=== PATIENT | male | born 1965 | race Caucasian/White ===

== ENCOUNTER 2019-03-01 18:32 | Inpatient (IN) | payer OTHER ==
[2019-03-01 20:54] VITALS: BMI 25.8
--- NOTE | 2019-03-01 23:15 | HP ---
CIWA Score Nausea/Vomitin Muscle Tremors: 5 Anxiety: 4-Mod. Anxious/Guarded Agitation: 4-Moderately Restless Paroxysmal Sweats: 3 Orientation: 0-Oriented Tacttile Disturbances: 2-Mild Itch/Numbness/Burn Auditory Disturbances: 1-Very Mild Visual Disturbances: 1-Very Mild Sensitivity Headache: 2-Mild CIWA-Ar Total Score: 25 - Admission Criteria OASAS Guidelines: Admission for Medically Managed Detox: Requires at least one of the followin. CIWA greater than 12 2. Seizures within the past 24 hours 3. Delirium tremens within the past 24 hours 4. Hallucinations within the past 24 hours 5. Acute intervention needed for co occurring medical disorder 6. Acute intervention needed for co occurring psychiatric disorder 7. Severe withdrawal that cannot be handled at a lower level of care (continued vomiting, continued diarrhea, abnormal vital signs) requiring intravenous medication and/or fluids 8. Patient presents the following: CIWA greater than 12 Admission Criteria Met: Admission criteria met Admission ROS [facility] Chief Complaint: C/O OF WITHDRAWAL SX'S/ SEEKING DETOX Allergies/Adverse Reactions: Allergies Allergy/AdvReac Type Severity Reaction Status Date / Time Penicillins Allergy Severe Rash Verified 03/01/19 20:45 History of Present Illness: 53 Y.O. MALE WITH HX/O ALCOHOLISM HERE FOR DETOX. THIS IS CLIENT FIRST ADMISSION HERE. REFERRED BY EMERGENCY SERVICES. NOT SURE WHO/WHERE. PRESENTS WITH C/O WITHDRAWAL SX'S. CIWA 25. REPORTS LAST DETOX 3 WEEKS AGO AT [facility]. STATES RELAPSED IMMED AFTER DC. denies any significant period of clean time. DENIES HX/O SI/HI/AVH. DOMICILED, UNEMPLOYED-HRA, DENIES LEGALS Exam Limitations: No Limitations - Ebola screening Have you traveled outside of the country in the last 21 days: No (N) Have you had contact with anyone from an Ebola affected area: No Do you have a fever: No - Review of Systems Constitutional: Chills, Loss of Appetite, Malaise, Night Sweats, Changes in sleep, Unintentional Wgt. Loss EENT: reports: Dental Problems ([place]) Respiratory: reports: No Symptoms reported Cardiac: reports: No Symptoms Reported GI: reports: Nausea, Poor Appetite, Poor Fluid Intake, Vomiting, Abdominal cramping : reports: Frequency Musculoskeletal: reports: Back Pain (CHRONIC), Joint Pain (CHRONIC) Integumentary: reports: Flushing Neuro: reports: Headache, Tremors Endocrine: reports: No Symptoms Reported Hematology: reports: Anemia (HX/O) Psychiatric: reports: Orientated x3, Agitated (IRRITABLE), Anxious, Depressed ( DENIES SI/HI) Other Systems: Reviewed and Negative Patient History - Patient Medical History Hx Anemia: Yes Hx Asthma: Yes Hx Chronic Obstructive Pulmonary Disease (COPD): No Hx Cancer: No Hx Cardiac Disorders: Yes (CARDIOMEGALY) Hx Congestive Heart Failure: No Hx Hypertension: No Hx Hypercholesterolemia: No Hx Pacemaker: No HX Cerebrovascular Accident: No Hx Seizures: No Hx Dementia: No Hx Diabetes: No Hx Gastrointestinal Disorders: No Hx Liver Disease: No Hx Genitourinary Disorders: No Hx Sexually Transmitted Disorders: Yes (HX/O SYPHILLIS) Hx Renal Disease (ESRD): No Hx Thyroid Disease: No Hx Human Immunodeficiency Virus (HIV): No Hx Hepatitis C: No Hx Depression: Yes Hx Suicide Attempt: No Hx Bipolar Disorder: Yes Hx Schizophrenia: No Other Medical History: DENIES - Patient Surgical History Past Surgical History: No - PPD History Previous Implant?: Yes Documented Results: Negative w/o proof Implanted On Prior [facility] Admission?: No PPD to be Administered?: Yes - Smoking Cessation Smoking history: Current some day smoker Have you smoked in the past 12 months: Yes Aproximately how many cigarettes per day: 1 Cigars Per Day: 0 Hx Chewing Tobacco Use: No Initiated information on smoking cessation: Yes 'Breaking Loose' booklet given: 03/01/19 - Substance & Tx. History Hx Alcohol Use: Yes Hx Substance Use: Yes Substance Use Type: Alcohol Hx Substance Use Treatment: Yes ([facility]) - Substances abused Alcohol Substance route: Oral Frequency: Daily Amount used: liquor- 2 pnts Age of first use: 16 Date of last use: 03/01/19 Family Disease History - Family Disease History Family Disease History: Heart Disease: Grandparent (ALCOHOLISM/ ), Mother ( ALCOHOLISM/ ), Other: Grandparent, Father (DRUG ABUSE), Mother Admission Physical Exam [facility] - Vital Signs Vital Signs: Vital Signs - 24 hr 03/01/19 03/01/19 20:44 23:05 Temperature 97.3 F L 97.3 F L Pulse Rate 83 83 Respiratory 20 20 Rate Blood Pressure 117/83 117/83 - Physical General Appearance: Yes: Disheveled, Moderate Distress, Alcohol on Breath, Tremorous, Irritable, Anxious, Other (MALODUROUS) HEENTM: Yes: EOMI, Normocephalic, Normal Voice, JAME, Pharynx Normal Respiratory: Yes: Chest Non-Tender, Lungs Clear, Normal Breath Sounds, No Respiratory Distress, No Accessory Muscle Use Neck: Yes: No masses,lesions,Nodules, Supple, Trachea in good position Breast: Yes: Breast Exam Deferred Cardiology: Yes: Regular Rhythm, S1, S2, Tachycardia Abdominal: Yes: Non Tender, Soft, Increased Bowel Sounds Genitourinary: Yes: Frequency (C/O) Back: Yes: Normal Inspection Musculoskeletal: Yes: full range of Motion, Gait Steady Extremities: Yes: Normal Capillary Refill, Normal Range of Motion, Non-Tender, Tremors Neurological: Yes: Fully Oriented, Alert, Motor Strength 5/5, Depressed Affect Integumentary: Yes: Warm, Other (FLUSHED) Lymphatic: Yes: Within Normal Limits - Diagnostic (1) Alcohol dependence with uncomplicated withdrawal Current Visit: Yes Status: Acute (2) Nicotine abuse Current Visit: Yes Status: Acute (3) Asthma Current Visit: Yes Status: Acute (4) Substance induced mood disorder Current Visit: Yes Status: Acute Cleared for Admission S - Detox or Rehab [facility] Level of Care: Medically Managed Detox Regimen/Protocol: Librium Claeared for Rehab Admission: No Breathalyzer - Breathalyzer Breathalyzer: 0 Urine Drug Screen - Test Device Lot number: [id number] Expiration date: 09/28/20 - Control Is test valid?: Yes - Results Drug screen NEGATIVE: No Urine drug screen results: BZO-Benzodiazepines Inpatient Rehab Admission - Rehab Decision to Admit Inpatient rehab admission?: No
[2019-03-01] MEDS ORDERED: MAGNESIUM HYDROX 2400MG/30ML ORAL SUSPENSION 30 ML CUP PO PRN (23:20)
[2019-03-01] MEDS ORDERED: MAGNESIUM CITRATE 300 ML BOTTLE PO PRN (23:20)
[2019-03-01] MEDS ORDERED: MAG HYDROX/AL HYDROX/SIMETH 30 ML UNIT-DOSE CUP PO PRN (23:20)
[2019-03-01] MEDS ORDERED: guaiFENesin 200 MG/10 ML 10 ML UNIT-DOSE CUPS PO PRN (23:20)
[2019-03-01] MEDS ORDERED: METHOCARBAMOL 500 MG TABLET PO PRN (23:20)
[2019-03-01] MEDS ORDERED: NICOTINE POLACRILEX 2 MG GUM BUC PRN (23:20)
[2019-03-01] MEDS ORDERED: hydrOXYzine PAMOATE 25 MG CAPSULE (FP) PO PRN (23:20)
[2019-03-01] MEDS ORDERED: MENTHOL/PHENOL 1 EACH UD MM PRN (23:20)
[2019-03-01] MEDS ORDERED: chlordiazePOXIDE HCL 25 MG CAPSULE PO ONE (23:20)
[2019-03-01] MEDS ORDERED: ACETAMINOPHEN 325 MG TABLET (FP) PO PRN ×2 (23:20)
[2019-03-01] MEDS ORDERED: BISMUTH SUBSALICYLATE 524 MG/30 ML UD PO PRN (23:20)
[2019-03-01] MEDS ORDERED: chlordiazePOXIDE HCL 25 MG CAPSULE PO PRN (23:20)
[2019-03-01] MEDS ORDERED: IBUPROFEN 400 MG TABLET (FP) PO PRN ×2 (23:20)
[2019-03-01] MEDS ORDERED: ONDANSETRON *ODT* 4 MG TABLET SL PRN (23:20)
[2019-03-01] MEDS ORDERED: DICYCLOMINE HCL 10 MG CAPSULE PO PRN (23:20)
[2019-03-01] MEDS ORDERED: P-EPHED 60MG/TRIPROLIDI 2.5MG TABLET PO PRN (23:20)
[2019-03-02] MEDS: MELATONIN 5 MG TABLETS PO PRN ×2 (01:02→22:07)
[2019-03-02] MEDS: chlordiazePOXIDE HCL 25 MG CAPSULE PO SCH ×5 (01:04→22:05)
[2019-03-02] MEDS: ASPIRIN 81 MG CHEWABLE TABLETS PO SCH (10:19)
[2019-03-02] MEDS: PRENATAL VITAMINS W/ FOLIC ACID TABLET (FP) PO SCH (10:19)
[2019-03-02 10:32] LABS: HEMOGLOBIN 10.9 GM/dL (11.7-16.9); MCH 32.5 pg (25.7-33.7); MEAN CELL VOLUME 98.3 fl (80-96); MEAN PLT VOLUME 8.3 fl (7.5-11.1); PLATELET COUNT 108 K/MM3 (134-434); RBC 3.35 M/mm3 (4.00-5.60); RDW 13.6 % (11.9-15.9); WHITE BLOOD COUNT 5.5 K/mm3 (4.0-10.0)
[2019-03-02 10:40] LABS: EPI CELLS 0.3 /HPF (0-5/HPF); PH,URINE 5.5 (5.0-8.0); URINE APPEARANCE CLEAR; URINE BACTERIA 2.4 /hpf (NEGATIVE); URINE BILIRUBIN NEGATIVE (NEGATIVE); URINE CASTS 0 /lpf (0-8); URINE COLOR YELLOW; URINE GLUCOSE (UA) NEGATIVE (NEGATIVE); URINE KETONE NEGATIVE (NEGATIVE); URINE LEUK ESTERASE TRACE (NEGATIVE); URINE NITRITE NEGATIVE (NEGATIVE); URINE PROTEIN NEGATIVE (NEGATIVE); URINE RBC 1 /hpf (0-4); URINE WBC 0 /hpf (0-5)
--- NOTE | 2019-03-02 11:07 | PN ---
[facility] CIWA - CIWA Score Nausea/Vomitin-No Nausea/No Vomiting Muscle Tremors: 3 Anxiety: 2 Agitation: 2 Paroxysmal Sweats: 4-Forehead w/Sweat Beads Orientation: 0-Oriented Tacttile Disturbances: 1-Very Mild Itch/Numbness Auditory Disturbances: 0-None Visual Disturbances: 2-Mild Sensitivity Headache: 2-Mild CIWA-Ar Total Score: 16 [facility] Progress Note (SOAP) Subjective: C/O shakes, sweats, interrupted sleep, and headache. Objective: 03/02/19 11:04 Vital Signs 03/02/19 03/02/19 03/02/19 03:21 03:30 04:00 Temperature Pulse Rate 87 86 Respiratory 18 16 16 Rate Blood Pressure 03/02/19 03/02/19 03/02/19 04:30 05:00 05:30 Temperature Pulse Rate 86 86 85 Respiratory 16 16 16 Rate Blood Pressure 03/02/19 03/02/19 03/02/19 05:58 06:00 06:30 Temperature 98.2 F Pulse Rate 85 85 80 Respiratory 16 16 16 Rate Blood Pressure 123/77 03/02/19 03/02/19 03/02/19 07:00 07:30 08:00 Temperature Pulse Rate 79 79 78 Respiratory 16 16 16 Rate Blood Pressure 03/02/19 09:31 Temperature 97.3 F L Pulse Rate 88 Respiratory 18 Rate Blood Pressure 121/72 Assessment: 03/02/19 11:04 AOX3, in no respiratory distress EENT: WNL full ROM withdrawal symptoms persists. Plan: continue detox Increase fluids monitor withdrawal signs
[2019-03-02 12:06] LABS: ALBUMIN 3.1 g/dl (3.4-5.0); ALK PHOS 145 U/L (45-117); ANION GAP 10 MMOL/L (8-16); BILIRUBIN,TOTAL 0.8 mg/dL (0.2-1); BLOOD UREA NITROGEN 7 mg/dL (7-18); CALCIUM 8.3 mg/dL (8.5-10.1); CHLORIDE 105 mmol/L (98-107); CO2 28 mmol/L (21-32); CREATININE 0.6 mg/dL (0.55-1.3); GLUCOSE,RANDOM 96 mg/dL (74-106); POTASSIUM 3.4 mmol/L (3.5-5.1); SGOT/AST 47 U/L (15-37); SGPT/ALT 18 U/L (13-61); SODIUM 142 mmol/L (136-145); TOT PROT 6.9 g/dl (6.4-8.2)
--- NOTE | 2019-03-02 16:08 | PN ---
[facility] Progress Note Note: Ferrous sulfate 325mg po tid started today. Pt's K+ is 3.4. potassium 20meq po daily x3 days. Will recheck potassium level on 03/04/2019.
--- NOTE | 2019-03-02 16:11 | CONSULT ---
[facility] Psychiatric Consult - Data Date of interview: 03/02/19 Admission source: [facility] Identifying data: Readmission to [facility] for this 54 y/o male self- referred for detoxification (alcohol). Examined at [address] [place] [address]. Patient is single, a father of four, domiciled, unemployed and supported on welfare. Substance Abuse History: Confirmed by the patient in this session. Details in current [facility] report : Smoking history: Current some day smoker. Have you smoked in the past 12 months: Yes. Aproximately how many cigarettes per day: 1. Cigars Per Day: 0. Hx Chewing Tobacco Use: No. Initiated information on smoking cessation: Yes. 'Breaking Loose' booklet given: 03/01/19. - Substance & Tx. History. Hx Alcohol Use: Yes. Hx Substance Use: Yes. Substance Use Type : Alcohol. Hx Substance Use Treatment: Yes ([facility]). - Substances abused. Alcohol. Substance route: Oral. Frequency: Daily. Amount used: liquor- 2 pnts. Age of first use: 16. Date of last use: 03/01/19 Medical History: Bronchial asthma, hypertension, anemeia, cardiomegaly and history of treatment for syphilis. Psychiatric History: Patient is a vague historian. Admits to " some " psychiatric hospitalizations but he only remembers a distant admission to [facility]. Reportedly diagnosed with MDD. Has been medicated in the past with depakote + vistaril + seroquel. Mr Moya states that his psychiatric aftercare use to be at [facility]PD clinic (no show for more than eight months). " I have not been there for, I don't know, seven, eight , nine months. May be even, more than a year. I don't know. It is so far that I don't recall ". Patient declares that he has NOT taken his medications for about a year. Denies history of suicide attempts. Physical/Sexual Abuse/Trauma History: Patient denies. Additional Comment: Urine drug screen results: BZO-Benzodiazepines. Noted. Mental Status Exam - Mental Status Exam Alert and Oriented to: Time, Place, Person Cognitive Function: Good Patient Appearance: Disheveled Mood: Hopeful, Euthymic Affect: Appropriate, Normal Range Patient Behavior: Cooperative (indifferent) Speech Pattern: Clear, Appropriate Voice Loudness: Normal Thought Process: Goal Oriented Thought Disorder: Not Present Hallucinations: Denies Suicidal Ideation: Denies Homicidal Ideation: Denies Insight/Judgement: Poor Sleep: Poorly, Difficulty falling asleep Appetite: Good Muscle strength/Tone: Normal Gait/Station: Normal Psychiatric Findings - Problem List ([place] 1, 2,3) (1) Alcohol dependence with uncomplicated withdrawal Current Visit: Yes Status: Acute (2) Nicotine dependence Current Visit: Yes Status: Chronic (3) History of mood disorder Current Visit: Yes Status: Chronic (4) Non-compliance Current Visit: Yes Status: Chronic (5) Insomnia Current Visit: Yes Status: Chronic - Initial Treatment Plan Initial Treatment Plan: Psychoeducation. Sleep hygiene. Detoxification. AA meetings. Relapse prevention (MAT) : discussed in session (met with patient's indifference). Seroquel 50 mg po hs (patient's request). Side effects/benefits disccussed with the patient. Verbal consent given. Mr Moya states that he is not interested in detoxification and might leave the program in the morning because he has to take care of pressing housing issues. " I don't want to be in the streets ". Observation.
[2019-03-02] MEDS: FERROUS SO4 325 MG TABLET (FP) PO SCH (17:32)
[2019-03-02] MEDS: POTASSIUM CHLORIDE TABS 20 MEQ TABLET.ER (FP) PO SCH (17:32)
[2019-03-02] MEDS ORDERED: THIAMINE HCL 100 MG TABLET (FP) PO SCH (22:00)
[2019-03-02] MEDS ORDERED: QUEtiapine FUMARATE 50 MG TABLET PO SCH (22:00)
[2019-03-03] MEDS: chlordiazePOXIDE HCL 25 MG CAPSULE PO SCH ×2 (05:40→10:20)
[2019-03-03] MEDS: FERROUS SO4 325 MG TABLET (FP) PO SCH ×2 (09:00→13:00)
[2019-03-03] MEDS: ASPIRIN 81 MG CHEWABLE TABLETS PO SCH (10:19)
[2019-03-03] MEDS: PRENATAL VITAMINS W/ FOLIC ACID TABLET (FP) PO SCH (10:19)
[2019-03-03] MEDS: POTASSIUM CHLORIDE TABS 20 MEQ TABLET.ER (FP) PO SCH (10:20)
[2019-03-03 11:00] LABS: EPI CELLS 0.3 /HPF (0-5/HPF); PH,URINE 7.5 (5.0-8.0); URINE APPEARANCE CLEAR; URINE BACTERIA 22.3 /hpf (NEGATIVE); URINE BILIRUBIN NEGATIVE (NEGATIVE); URINE CASTS 0 /lpf (0-8); URINE COLOR YELLOW; URINE GLUCOSE (UA) NEGATIVE (NEGATIVE); URINE KETONE NEGATIVE (NEGATIVE); URINE LEUK ESTERASE 1+ (NEGATIVE); URINE NITRITE NEGATIVE (NEGATIVE); URINE PROTEIN NEGATIVE (NEGATIVE); URINE RBC 1 /hpf (0-4); URINE UROBILINOGEN 0.2 mg/dL (0.2-1.0); URINE WBC 0 /hpf (0-5)
--- NOTE | 2019-03-03 12:36 | PN ---
S CIWA - CIWA Score Nausea/Vomitin-Mild Nausea/No Vomiting Muscle Tremors: 3 Anxiety: 3 Agitation: 3 Paroxysmal Sweats: 3 Orientation: 0-Oriented Tacttile Disturbances: 0-None Auditory Disturbances: 0-None Visual Disturbances: 0-None Headache: 0-None Present CIWA-Ar Total Score: 13 S Progress Note (SOAP) Subjective: Sweating, interrupted sleep Objective: 03/03/19 12:33 Last Vital Signs Temp Pulse Resp BP Pulse Ox 97.5 F L 86 18 135/90 03/03/19 10:23 03/03/19 10:23 03/03/19 10:23 03/03/19 10:23 Laboratory Tests 03/02/19 03/02/19 03/02/19 07:45 07:45 07:45 WBC RBC Hgb Hct MCV MCH MCHC RDW Plt Count MPV Sodium 142 Potassium 3.4 L Chloride 105 Carbon Dioxide 28 Anion Gap 10 BUN 7 Creatinine 0.6 Creat Clearance w eGFR 140.93 Random Glucose 96 Calcium 8.3 L Total Bilirubin 0.8 AST 47 H ALT 18 Alkaline Phosphatase 145 H Total Protein 6.9 Albumin 3.1 L Urine Color Yellow Urine Appearance Clear Urine pH 5.5 Ur Specific [place] 1.019 Urine Protein Negative Urine Glucose (UA) Negative Urine Ketones Negative Urine Blood Negative Urine Nitrite Negative Urine Bilirubin Negative Urine Urobilinogen 1.0 Ur Leukocyte Esterase Trace Urine WBC (Auto) 0 Urine RBC (Auto) 1 Urine Casts (Auto) 0 U Epithel Cells (Auto) 0.3 Urine Bacteria (Auto) 2.4 RPR Titer Nonreactive 03/02/19 03/03/19 08:00 07:50 WBC 5.5 RBC 3.35 L Hgb 10.9 L Hct 33.0 L MCV 98.3 H MCH 32.5 MCHC 33.0 RDW 13.6 Plt Count 108 L MPV 8.3 Sodium Potassium Chloride Carbon Dioxide Anion Gap BUN Creatinine Creat Clearance w eGFR Random Glucose Calcium Total Bilirubin AST ALT Alkaline Phosphatase Total Protein Albumin Urine Color Yellow Urine Appearance Clear Urine pH 7.5 D Ur Specific [place] 1.005 L Urine Protein Negative Urine Glucose (UA) Negative Urine Ketones Negative Urine Blood Trace Urine Nitrite Negative Urine Bilirubin Negative Urine Urobilinogen 0.2 Ur Leukocyte Esterase 1+ H Urine WBC (Auto) 0 Urine RBC (Auto) 1 Urine Casts (Auto) 0 U Epithel Cells (Auto) 0.3 Urine Bacteria (Auto) 22.3 RPR Titer Labs reviewed: K 3.4, noted with pancytopenia Assessment: 03/03/19 12:34 Withdrawal symptoms Noted with mild hypokalemia and pancytopenia Plan: Continue detox Encouraged PO water hydration Hypokalemia: supplemented, follow up on repeated serum K level on 03/04 Pancytopenia: most likely r/t chronic alcoholism, encouraged abstinence, follow up with PCP for monitoring
[2019-03-03 13:58] VITALS: BP 111/74; PULSE 98; TEMP 98.2
--- NOTE | 2019-03-03 14:10 | DS ---
[facility] Detox Discharge Summary Admission Date: 03/01/19 Discharge Date: 03/03/19 - History Present History: Alcohol Dependence Additional Comments: Patient demanded to leave AMA despite encouragement from staff to complete detox. Patient denies any complaints. Instructed to follow up with PCP within 3 days and to call [phone] if any withdrawal symptoms or feeling sick. Pertinent Past History: Alcohol dependence Cardiomegaly Anemia Asthma Nicotine dependence Depression Bipolar disorder - Physical Exam Results Vital Signs: Vital Signs Temperature 98.2 F 03/03/19 13:57 Pulse Rate 98 H 03/03/19 13:57 Respiratory Rate 18 03/03/19 13:57 Blood Pressure 111/74 03/03/19 13:57 O2 Sat by Pulse Oximetry (%) Pertinent Admission Physical Exam Findings: Withdrawal symptoms Laboratory Tests 03/02/19 03/02/19 03/02/19 07:45 07:45 07:45 WBC RBC Hgb Hct MCV MCH MCHC RDW Plt Count MPV Sodium 142 Potassium 3.4 L Chloride 105 Carbon Dioxide 28 Anion Gap 10 BUN 7 Creatinine 0.6 Creat Clearance w eGFR 140.93 Random Glucose 96 Calcium 8.3 L Total Bilirubin 0.8 AST 47 H ALT 18 Alkaline Phosphatase 145 H Total Protein 6.9 Albumin 3.1 L Urine Color Yellow Urine Appearance Clear Urine pH 5.5 Ur Specific [place] 1.019 Urine Protein Negative Urine Glucose (UA) Negative Urine Ketones Negative Urine Blood Negative Urine Nitrite Negative Urine Bilirubin Negative Urine Urobilinogen 1.0 Ur Leukocyte Esterase Trace Urine WBC (Auto) 0 Urine RBC (Auto) 1 Urine Casts (Auto) 0 U Epithel Cells (Auto) 0.3 Urine Bacteria (Auto) 2.4 RPR Titer Nonreactive 03/02/19 03/03/19 08:00 07:50 WBC 5.5 RBC 3.35 L Hgb 10.9 L Hct 33.0 L MCV 98.3 H MCH 32.5 MCHC 33.0 RDW 13.6 Plt Count 108 L MPV 8.3 Sodium Potassium Chloride Carbon Dioxide Anion Gap BUN Creatinine Creat Clearance w eGFR Random Glucose Calcium Total Bilirubin AST ALT Alkaline Phosphatase Total Protein Albumin Urine Color Yellow Urine Appearance Clear Urine pH 7.5 D Ur Specific [place] 1.005 L Urine Protein Negative Urine Glucose (UA) Negative Urine Ketones Negative Urine Blood Trace Urine Nitrite Negative Urine Bilirubin Negative Urine Urobilinogen 0.2 Ur Leukocyte Esterase 1+ H Urine WBC (Auto) 0 Urine RBC (Auto) 1 Urine Casts (Auto) 0 U Epithel Cells (Auto) 0.3 Urine Bacteria (Auto) 22.3 RPR Titer Labs reviewed - Medication Discharge Medications: Ambulatory Orders Aspirin [ASA -] 81 mg PO DAILY 03/01/19 Divalproex [Depakote -] 500 mg PO BID 03/01/19 Quetiapine Fumarate [Seroquel -] 300 mg PO HS 03/01/19 hydrOXYzine PAMOATE [Vistaril -] 50 mg PO TID 03/01/19 - Diagnosis (1) Anemia Current Visit: Yes Status: Chronic (2) Cardiomegaly Current Visit: Yes Status: Chronic (3) Depression Current Visit: Yes Status: Chronic (4) Bipolar disorder Current Visit: Yes Status: Chronic (5) Alcohol dependence with uncomplicated withdrawal Current Visit: Yes Status: Acute (6) Asthma Current Visit: Yes Status: Chronic (7) Nicotine dependence Current Visit: Yes Status: Chronic (8) Hypokalemia Current Visit: Yes Status: Acute (9) Pancytopenia Current Visit: Yes Status: Acute - AMA Did Patient Leave Against Medical Advice: Yes (Instructed to call [phone] if sick or withdrawal symptoms)
[2019-03-03] MEDS ORDERED: chlordiazePOXIDE HCL 10 MG CAPSULE PO PRN (23:00)
[2019-03-03] MEDS ORDERED: chlordiazePOXIDE HCL 10 MG CAPSULE PO SCH (23:00)
[2019-03-04] MEDS ORDERED: chlordiazePOXIDE HCL 10 MG CAPSULE PO SCH (23:00)
== END 2019-03-03 15:15 | disposition left against medical advice (07) | DRG 770 ==
LOC: YASAS 18:32 → Y6N 23:45
PROVIDERS: ADMIT Surgery; ATTEND Surgery
PROC: HZ2ZZZZ Detoxification Services for Substance Abuse Treatment (ICD-10-PCS; principal; 2019-03-01)
DX: F10.230 Alcohol dependence with withdrawal, uncomplicated (principal); F17.213 Nicotine dependence, cigarettes, with withdrawal; F39 Unspecified mood [affective] disorder; F31.9 Bipolar disorder, unspecified; I51.7 Cardiomegaly; D64.9 Anemia, unspecified; D61.818 Other pancytopenia; E87.6 Hypokalemia; J45.909 Unspecified asthma, uncomplicated; G47.00 Insomnia, unspecified; Z91.19 Patient's noncompliance with other medical treatment and regimen
CPT/HCPCS: 36415; 80053; 81003; 85027; 86593

== ENCOUNTER 2023-04-19 10:32 | Inpatient (IN) | payer OTHER ==
[2023-04-19 10:52] VITALS: BMI 27.4
[2023-04-19] MEDS ORDERED: IBUPROFEN 600 MG TABLET (FP) PO PRN (11:20)
[2023-04-19] MEDS ORDERED: MAG HYDROX/AL HYDROX/SIMETH 30 ML UNIT-DOSE CUP PO PRN (11:20)
[2023-04-19] MEDS ORDERED: COLLOIDAL OATMEAL 1 BAR EACH TP PRN (11:20)
[2023-04-19] MEDS ORDERED: guaiFENesin 600 MG TABLET.ER (FP) PO PRN (11:20)
[2023-04-19] MEDS ORDERED: AMMONIUM LACTATE 12% LOTION 225 GM BOTTLE TP PRN (11:20)
[2023-04-19] MEDS ORDERED: MAGNESIUM HYDROX 2400MG/30ML ORAL SUSPENSION 30 ML CUP PO PRN (11:20)
[2023-04-19] MEDS ORDERED: POLYETHYLENE GLYCOL (HEALTHYLAX) 3350 17 GM PACKET PO PRN (11:20)
[2023-04-19] MEDS ORDERED: NICOTINE 10 MG CARTRIDGE (INHALER) IH PRN (11:20)
[2023-04-19] MEDS ORDERED: NALOXONE HCL 0.4 MG/ML VIAL IM PRN (11:20)
[2023-04-19] MEDS ORDERED: LOPERAMIDE HCL 2 MG CAPSULE PO PRN (11:20)
[2023-04-19] MEDS ORDERED: BENZONATATE 200 MG CAPSULE PO PRN (11:20)
[2023-04-19] MEDS ORDERED: IBUPROFEN 400 MG TABLET (FP) PO PRN (11:20)
[2023-04-19] MEDS ORDERED: BENZOCAINE/MENTHOL (CHLORASEPTIC ) LOZENGE MM PRN (11:20)
[2023-04-19] MEDS ORDERED: ACETAMINOPHEN 325 MG TABLET (FP) PO PRN (11:20)
[2023-04-19] MEDS ORDERED: NALOXONE HCL (KLOXXADO) 8 MG SPRAY NS PRN (11:20)
[2023-04-19] MEDS ORDERED: chlordiazePOXIDE HCL 25 MG CAPSULE ONE (11:42)
[2023-04-19] MEDS ORDERED: ASPIRIN 81 MG CHEWABLE TABLETS ONE (11:43)
[2023-04-19] MEDS: chlordiazePOXIDE HCL 25 MG CAPSULE PO SCH ×3 (11:45→22:06)
[2023-04-19] MEDS: ASPIRIN 81 MG CHEWABLE TABLETS PO SCH (11:48)
[2023-04-19 17:08] LABS: HEMATOCRIT 34.5 % (35.4-49); HEMOGLOBIN 11.5 GM/dL (11.7-16.9); MCH 29.7 pg (25.7-33.7); MCHC 33.3 g/dl (32.0-35.9); MEAN CELL VOLUME 89.2 fl (80-96); MEAN PLT VOLUME 8.7 fl (7.5-11.1); PLATELET COUNT 118 10^3/uL (134-434); RBC 3.87 M/mm3 (4.00-5.60); RDW 14.9 % (11.9-15.9); WHITE BLOOD COUNT 5.7 K/mm3 (4.0-10.0)
[2023-04-19 17:14] LABS: POTASSIUM 4.8 mmol/L (3.5-5.1)
[2023-04-19 17:15] LABS: CALCIUM 8.8 mg/dL (8.5-10.1)
[2023-04-19 17:16] LABS: ALBUMIN 3.6 g/dl (3.4-5.0); BLOOD UREA NITROGEN 12.6 mg/dL (7-18)
[2023-04-19 17:19] LABS: CREATININE 0.9 mg/dL (0.55-1.3)
[2023-04-19 17:20] LABS: BILIRUBIN,TOTAL 0.7 mg/dL (0.2-1)
[2023-04-19 17:21] LABS: TOT PROT 8.1 g/dl (6.4-8.2)
[2023-04-19] MEDS: ONDANSETRON *ODT* 4 MG TABLET SL PRN (18:27)
[2023-04-19] MEDS: THIAMINE HCL 100 MG TABLET (FP) PO SCH (22:05)
[2023-04-19] MEDS: MELATONIN 5 MG TABLETS PO SCH (22:06)
[2023-04-19] MEDS: QUEtiapine FUMARATE 100 MG TABLET (FP) PO SCH (22:06)
[2023-04-20] MEDS: chlordiazePOXIDE HCL 25 MG CAPSULE PO SCH ×4 (05:52→22:10)
[2023-04-20] MEDS: ASPIRIN 81 MG CHEWABLE TABLETS PO SCH (10:09)
[2023-04-20] MEDS: QUEtiapine FUMARATE 50 MG TABLET PO SCH (10:09)
[2023-04-20] MEDS: SERTRALINE HCL 25 MG TABLET (FP) PO SCH (10:09)
[2023-04-20] MEDS: PRENATAL VITAMINS W/ FOLIC ACID TABLET (FP) PO SCH (10:09)
[2023-04-20] MEDS: METHOCARBAMOL 500 MG TABLET PO PRN ×2 (10:13→18:00)
[2023-04-20] MEDS: ONDANSETRON *ODT* 4 MG TABLET SL PRN (10:13)
[2023-04-20] MEDS: MELATONIN 5 MG TABLETS PO SCH (22:10)
[2023-04-20] MEDS: QUEtiapine FUMARATE 100 MG TABLET (FP) PO SCH (22:10)
[2023-04-20] MEDS: THIAMINE HCL 100 MG TABLET (FP) PO SCH (22:10)
[2023-04-20] MEDS: BISMUTH SUBSALICYLATE 524 MG/30 ML PO PRN (22:13)
[2023-04-21] MEDS: chlordiazePOXIDE HCL 25 MG CAPSULE PO SCH ×4 (05:43→22:07)
[2023-04-21] MEDS: PRENATAL VITAMINS W/ FOLIC ACID TABLET (FP) PO SCH (10:04)
[2023-04-21] MEDS: SERTRALINE HCL 25 MG TABLET (FP) PO SCH (10:05)
[2023-04-21] MEDS: QUEtiapine FUMARATE 50 MG TABLET PO SCH (10:05)
[2023-04-21] MEDS: ASPIRIN 81 MG CHEWABLE TABLETS PO SCH (10:05)
[2023-04-21] MEDS: BISMUTH SUBSALICYLATE 524 MG/30 ML PO PRN ×2 (10:09→22:09)
[2023-04-21] MEDS: LIDOCAINE 5% TOPICAL PATCH TP SCH (13:18)
[2023-04-21] MEDS: THIAMINE HCL 100 MG TABLET (FP) PO SCH (22:06)
[2023-04-21] MEDS: QUEtiapine FUMARATE 100 MG TABLET (FP) PO SCH (22:06)
[2023-04-21] MEDS: DICYCLOMINE HCL 10 MG CAPSULE PO PRN (22:06)
[2023-04-21] MEDS: METHOCARBAMOL 500 MG TABLET PO PRN (22:06)
[2023-04-21] MEDS: MELATONIN 5 MG TABLETS PO SCH (22:06)
[2023-04-21] MEDS: LIDOCAINE PATCH REMOVAL MC SCH (23:09)
[2023-04-22] MEDS: chlordiazePOXIDE HCL 10 MG CAPSULE PO SCH ×4 (05:19→22:36)
[2023-04-22] MEDS: SERTRALINE HCL 25 MG TABLET (FP) PO SCH (10:13)
[2023-04-22] MEDS: ASPIRIN 81 MG CHEWABLE TABLETS PO SCH (10:13)
[2023-04-22] MEDS: PRENATAL VITAMINS W/ FOLIC ACID TABLET (FP) PO SCH (10:13)
[2023-04-22] MEDS: LIDOCAINE 5% TOPICAL PATCH TP SCH (10:13)
[2023-04-22] MEDS: QUEtiapine FUMARATE 50 MG TABLET PO SCH (10:13)
[2023-04-22] MEDS: BISMUTH SUBSALICYLATE 524 MG/30 ML PO PRN (10:16)
[2023-04-22] MEDS: DICYCLOMINE HCL 10 MG CAPSULE PO PRN (17:37)
[2023-04-22] MEDS: LIDOCAINE PATCH REMOVAL MC SCH (22:35)
[2023-04-22] MEDS: MELATONIN 5 MG TABLETS PO SCH (22:35)
[2023-04-22] MEDS: QUEtiapine FUMARATE 100 MG TABLET (FP) PO SCH (22:36)
[2023-04-22] MEDS: THIAMINE HCL 100 MG TABLET (FP) PO SCH (22:36)
[2023-04-22] MEDS: METHOCARBAMOL 500 MG TABLET PO PRN (22:36)
[2023-04-23] MEDS: chlordiazePOXIDE HCL 10 MG CAPSULE PO SCH ×2 (05:42→17:18)
[2023-04-23] MEDS: LIDOCAINE 5% TOPICAL PATCH TP SCH (09:32)
[2023-04-23] MEDS: PRENATAL VITAMINS W/ FOLIC ACID TABLET (FP) PO SCH (09:33)
[2023-04-23] MEDS: QUEtiapine FUMARATE 50 MG TABLET PO SCH (09:33)
[2023-04-23] MEDS: SERTRALINE HCL 25 MG TABLET (FP) PO SCH (09:33)
[2023-04-23] MEDS: ASPIRIN 81 MG CHEWABLE TABLETS PO SCH (09:33)
[2023-04-23] MEDS ORDERED: ALBUTEROL SO4 HFA INHALER IH PRN (15:16)
[2023-04-23] MEDS: QUEtiapine FUMARATE 100 MG TABLET (FP) PO SCH (22:04)
[2023-04-23] MEDS: THIAMINE HCL 100 MG TABLET (FP) PO SCH (22:05)
[2023-04-23] MEDS: MELATONIN 5 MG TABLETS PO SCH (22:05)
[2023-04-23] MEDS: LIDOCAINE PATCH REMOVAL MC SCH (22:50)
[2023-04-24] MEDS ORDERED: chlordiazePOXIDE HCL 10 MG CAPSULE PO ONE (05:00)
[2023-04-24] MEDS: METHOCARBAMOL 500 MG TABLET PO PRN (05:39)
[2023-04-24 06:29] VITALS: RESP 18
[2023-04-24] MEDS: QUEtiapine FUMARATE 50 MG TABLET PO SCH (10:12)
[2023-04-24] MEDS: PRENATAL VITAMINS W/ FOLIC ACID TABLET (FP) PO SCH (10:12)
[2023-04-24] MEDS: LIDOCAINE 5% TOPICAL PATCH TP SCH (10:12)
[2023-04-24] MEDS: SERTRALINE HCL 25 MG TABLET (FP) PO SCH (10:12)
[2023-04-24] MEDS: ASPIRIN 81 MG CHEWABLE TABLETS PO SCH (10:12)
[2023-04-24 12:51] VITALS: BP 120/73; PULSE 89; TEMP 97.7
== END 2023-04-24 12:41 | disposition home or self-care (01) | DRG 775 ==
LOC: YASAS 10:32 → Y3N 11:28
PROVIDERS: ADMIT Allergy & Immunology; ATTEND Surgery
PROC: HZ2ZZZZ Detoxification Services for Substance Abuse Treatment (ICD-10-PCS; principal; 2023-04-19)
DX: F10.230 Alcohol dependence with withdrawal, uncomplicated (principal); F31.9 Bipolar disorder, unspecified; G47.00 Insomnia, unspecified; I10 Essential (primary) hypertension; M54.50 Low back pain, unspecified; Z99.89 Dependence on other enabling machines and devices; Z86.19 Personal history of other infectious and parasitic diseases; Z88.0 Allergy status to penicillin
CPT/HCPCS: 36415; 80053; 85027; 86593; 86780; 87635; 87811; Q0162

== ENCOUNTER 2024-08-10 18:42 | Inpatient (IN) | payer OTHER ==
[2024-08-10 19:19] VITALS: BMI 29.0
[2024-08-10] MEDS ORDERED: guaiFENesin 600 MG TABLET.ER (FP) PO PRN (21:40)
[2024-08-10] MEDS ORDERED: IBUPROFEN 400 MG TABLET (FP) PO PRN (21:40)
[2024-08-10] MEDS ORDERED: BISMUTH SUBSALICYLATE 524 MG/30 ML PO PRN (21:40)
[2024-08-10] MEDS ORDERED: LOPERAMIDE HCL 2 MG CAPSULE PO PRN (21:40)
[2024-08-10] MEDS ORDERED: ACETAMINOPHEN 325 MG TABLET (FP) PO PRN (21:40)
[2024-08-10] MEDS ORDERED: BENZOCAINE/MENTHOL (CHLORASEPTIC ) LOZENGE MM PRN (21:40)
[2024-08-10] MEDS ORDERED: DICYCLOMINE HCL 10 MG CAPSULE PO PRN (21:40)
[2024-08-10] MEDS ORDERED: NALOXONE (NYS OPIOID OVERDOSE PROGRAM) 4 MG/0.1 ML SPRAY NS PRN (21:40)
[2024-08-10] MEDS ORDERED: BENZONATATE 200 MG CAPSULE PO PRN (21:40)
[2024-08-10] MEDS ORDERED: NALOXONE (NARCAN) HCL 4 MG/0.1 ML SPRAY NS PRN (21:40)
[2024-08-10] MEDS ORDERED: chlordiazePOXIDE HCL 25 MG CAPSULE PO PRN (21:47)
[2024-08-10] MEDS: THIAMINE 100 MG TABLET PO SCH (22:56)
[2024-08-10] MEDS: chlordiazePOXIDE HCL 25 MG CAPSULE PO SCH (22:56)
[2024-08-10] MEDS: MELATONIN 5 MG TABLETS PO SCH (22:56)
[2024-08-11] MEDS ORDERED: ALBUTEROL SO4 HFA INHALER IH PRN (08:23)
[2024-08-11] MEDS: PRENATAL VITAMINS W/ FOLIC ACID TABLET (FP) PO SCH (10:16)
[2024-08-11] MEDS: hydrOXYzine PAMOATE 25 MG CAPSULE (FP) PO PRN (10:16)
[2024-08-11] MEDS: ONDANSETRON *ODT* 4 MG TABLET SL PRN (10:16)
[2024-08-11] MEDS: ASPIRIN 81 MG CHEWABLE TABLETS PO SCH (10:16)
[2024-08-11] MEDS: METHOCARBAMOL 500 MG TABLET PO PRN (10:16)
[2024-08-11] MEDS: QUEtiapine FUMARATE 50 MG TABLET PO SCH (10:28)
[2024-08-11] MEDS: SERTRALINE HCL 25 MG TABLET (FP) PO SCH (10:28)
[2024-08-11] MEDS: QUEtiapine FUMARATE 100 MG TABLET (FP) PO SCH (22:10)
[2024-08-12] MEDS: chlordiazePOXIDE HCL 25 MG CAPSULE PO SCH (05:31)
[2024-08-12] MEDS: MAG HYDROX/AL HYDROX/SIMETH 30 ML UNIT-DOSE CUP PO PRN (10:31)
[2024-08-12] MEDS: NALTREXONE HCL 50 MG TABLET PO SCH (15:32)
[2024-08-12] MEDS: QUEtiapine FUMARATE 200 MG TABLET PO SCH (22:03)
[2024-08-13] MEDS ORDERED: chlordiazePOXIDE HCL 10 MG CAPSULE PO PRN
[2024-08-13] MEDS: chlordiazePOXIDE HCL 10 MG CAPSULE PO SCH (05:35)
[2024-08-13] MEDS: IBUPROFEN 600 MG TABLET (FP) PO PRN (10:41)
[2024-08-13] MEDS: MAGNESIUM HYDROX 2400MG/30ML ORAL SUSPENSION 30 ML CUP PO PRN (17:21)
[2024-08-14] MEDS: chlordiazePOXIDE HCL 10 MG CAPSULE PO SCH (05:33)
[2024-08-14] MEDS: POLYETHYLENE GLYCOL (HEALTHYLAX) 3350 17 GM PACKET PO PRN (17:10)
[2024-08-15] MEDS: chlordiazePOXIDE HCL 10 MG CAPSULE PO ONE (05:40)
[2024-08-15 12:40] VITALS: BP 123/81; PULSE 82; RESP 16; TEMP 97.8
== END 2024-08-15 13:55 | disposition home or self-care (01) | DRG 775 ==
LOC: YASAS 18:42 → Y6N 21:48
PROVIDERS: ADMIT Allergy & Immunology; ATTEND Surgery
PROC: HZ2ZZZZ Detoxification Services for Substance Abuse Treatment (ICD-10-PCS; principal; 2024-08-10)
DX: F10.230 Alcohol dependence with withdrawal, uncomplicated (principal); F10.280 Alcohol dependence with alcohol-induced anxiety disorder; F10.282 Alcohol dependence with alcohol-induced sleep disorder; F10.24 Alcohol dependence with alcohol-induced mood disorder; F31.9 Bipolar disorder, unspecified; F41.9 Anxiety disorder, unspecified; G47.00 Insomnia, unspecified; J45.909 Unspecified asthma, uncomplicated; Z86.2 Personal history of diseases of the blood and blood-forming organs and certain disorders involving the immune mechanism; Z87.891 Personal history of nicotine dependence; Z86.19 Personal history of other infectious and parasitic diseases; Z88.0 Allergy status to penicillin
CPT/HCPCS: 80305; 80307; 93005; 93010; Q0162